=== PATIENT | male | born 1965 | race Caucasian/White ===

== ENCOUNTER 2018-07-21 07:04 | Day surgery (SDC) | payer OTHER ==
[2018-07-21] MEDS ORDERED: FENTAnyl 50 MCG/ML VIAL (10:27)
[2018-07-21] MEDS ORDERED: MIDAZOLAM 1 MG/ML 2 ML INJ ×2 (10:28)
== END 2018-07-21 12:08 | disposition home or self-care (01) ==
LOC: GIL 07:04
DX: D12.3 Benign neoplasm of transverse colon (principal); K64.8 Other hemorrhoids; K62.5 Hemorrhage of anus and rectum
CPT/HCPCS: 45380; 88305